=== PATIENT | female | born 1960 | race Caucasian/White ===

== ENCOUNTER 2016-06-19 13:34 | Inpatient (IN) | payer OTHER ==
[~2016-06-19] VITALS: Ht 160 cm; Wt 56.0 kg
[~2016-06-19 13:34] MED LIST: HYDR-3533 PO; MIRT7.5T10 PO; NITR100C4 PO
[2016-06-19] MEDS ORDERED: SODIUM CHLOR 0.9% 1000 ML INJ 1,000 ML IV SCH (13:39)
[2016-06-19] MEDS ORDERED: SODIUM CHLORIDE 0.9% FLUSH 10 ML FLUSH IVF PRN (13:45)
--- NOTE | 2016-06-19 14:14 | RADRPT ---
EXAM DATE/TIME: 06/19/2016 13:45 [facility] COMPARISON: CHOLANGIOGRAM OPERATIVE, June 28, 2015, 13:01. INDICATIONS : Syncope and shortness of breath. MEDICAL HISTORY : None. SURGICAL HISTORY : None. ENCOUNTER: Initial ACUITY: 1 day PAIN SCORE: 0/10 LOCATION: Bilateral upper chest FINDINGS: A single view of the chest demonstrates the lungs to be symmetrically aerated without evidence of mas s, infiltrate or effusion. The cardiomediastinal contours are unremarkable. Osseous structures are intact. CONCLUSION: 1. No acute cardiopulmonary findings. Daryl Swift MD on June 19, 2016 at 14:12 Board Certified Radiologist. This report was verified electronically.
[2016-06-19 14:24] LABS: AUTOMATED NEUTROPHIL # 5.3 TH/MM3 (1.8-7.7); BASOPHIL % 0.3 % (0.0-2.0); EOSINOPHIL % 0.6 % (0.0-4.0); HEMATOCRIT 39.2 % (35.0-46.0); HEMO FLAGS DIFF FINAL; LYMPH % 23.6 % (9.0-44.0); LYMPHOCYTE # 1.9 TH/MM3 (1.0-4.8); MEAN CELL VOLUME 92.2 FL (80.0-100.0); MEAN CORPUSCULAR HEMOGLOBIN 30.7 PG (27.0-34.0); MEAN CORPUSCULAR HGB CONC 33.3 % (32.0-36.0); MONO % 10.8 % (0.0-8.0); NEUT % 64.7 % (16.0-70.0); PLATELET COUNT 141 TH/MM3 (150-450); RED BLOOD COUNT 4.26 MIL/MM3 (4.00-5.30); RED CELL DISTRIBUTION WIDTH 16.9 % (11.6-17.2); WHITE BLOOD COUNT 8.2 TH/MM3 (4.0-11.0)
[2016-06-19 14:35] LABS: APTT (PATIENT) 22.9 SEC (24.3-30.1); PROTHROMBIN TIME - PATIENT 11.2 SEC (9.8-11.6)
--- NOTE | 2016-06-19 14:35 | PD ---
HPI Chief Complaint: altered mental status Time Seen by Provider: 13:38 Travel History International Travel<30 days: No Contact w/Intl Traveler<30days: No (denies) Traveled to known affect area: No (denies) History of Present Illness HPI This Is a 55-year-old female brought in by family members for worsening altered mental status. Reported bleeding, the patient has become more and more confused. Yesterday she was found to have driven her mother's car to [facility] near their house. She was observed going in and out of the store several times looking for her mother. Her mother was at home and it never come with her. The patient is also confused as to where she has. She keeps telling her nephew that she is in [facility]. The patient does know that she is confused however appears to try to downplay this and is not truthful as to exactly as what is going on. The patient keeps saying that she knows that she' s got a memory problem however goes off on 10 gentle thoughts. There is no reported psychiatric history. There is no reported illness. She does have a history in the distant past of heavy alcohol use. Family members state that they have not noted her to be drinking lately. Reportedly she was Alfaro acted by the [facility]'s office and take intact yesterday. According to the nephew, she was medically cleared and discharged this morning. She is still confused and unclear as to where she is. PFSH Past Medical History Arthritis: No Asthma: No Autoimmune Disease: No Blood Disorders: No Anxiety: Yes Depression: Yes Heart Rhythm Problems: Yes Cancer: No Cardiovascular Problems: Yes (per pt hypertension) High Cholesterol: No Chemotherapy: No Chest Pain: Yes Congestive Heart Failure: No COPD: No Cerebrovascular Accident: No Diabetes: No Endocrine: No Genitourinary: No Headaches: No Hypertension: Yes Immune Disorder: No Implanted Vascular Access Dvce: Yes Kidney Stones: No Musculoskeletal: No Neurologic: No Psychiatric: Yes (pt is a poor historian/doesn't remember name) Reproductive: No Respiratory: No Migraines: No Radiation Therapy: No Renal Failure: No Seizures: No Sickle Cell Disease: No Sleep Apnea: No Thyroid Disease: No : 3 Para: 3 Past Surgical History Abdominal Surgery: No AICD: No Arteriovenous Shunt: No Body Medical Devices: grill teeth Cardiac Surgery: No Cholecystectomy: Yes Ear Surgery: No Endocrine Surgery: No Eye Surgery: No Genitourinary Surgery: No Gynecologic Surgery: No Insulin Pump: No Joint Replacement: No Oral Surgery: No Pacemaker: No (PER PT NO IMPLANTED DEVICES NOW) Thoracic Surgery: No Tonsillectomy: Yes Social History Alcohol Use: Yes (DAILY) Tobacco Use: Yes (1PPD, FAMILY STATES MORE) Substance Use: Yes (ALCOHOL) Allergies-Medications (Allergen,Severity, Reaction): Coded Allergies: Penicillin (Verified Allergy, Severe, Rash, 01/30/16) PT STATES NOT ALLERGIC TO PCN. HAS NEVER HAD THE MEDICATION. *MDRO Multi-Drug Resistant Organism (Verified Adverse Reaction, Unknown, 02/03/16) ESBL+E.Coli (urine-01/30/16) Reported Meds & Prescriptions Reported Meds & Active Scripts Active Active Prescriptions or Reported Medications Unobtainable Review of Systems ROS Limitations: Clinical Condition (limited secondary to) Except as stated in HPI: all other systems reviewed are Neg Eyes: No: Blurred Vision, Photophobia HENT: No: Headaches, Neck Pain Cardiovascular: No: Chest Pain or Discomfort, Palpitations Respiratory: No: Cough, Shortness of Breath Gastrointestinal: Positive: Loss of Appetite, No: Nausea, Vomiting, Abdominal Pain Genitourinary: No: Frequency, Dysuria, Incontinence Musculoskeletal: No: Edema, Pain Neurologic: Positive: Change in Mentation, No: Weakness, Dizziness, Syncope, Focal Abnormalities, Headache Psychiatric: Positive: Disorder of Thought, Substance Abuse (in past, denies now), No: Anxiety, Depression Physical Exam Narrative GENERAL: This is a frail-appearing female in no acute respiratory distress. SKIN: Focused skin assessment warm/dry. HEAD: Atraumatic. Normocephalic. EYES: No scleral icterus. No injection or drainage. ENT: Mucous membranes pink and moist. NECK: Trachea midline. No JVD. CARDIOVASCULAR: Regular rate and rhythm. No murmur appreciated. RESPIRATORY: No accessory muscle use. Clear to auscultation. Breath sounds equal bilaterally. GASTROINTESTINAL: Abdomen soft, non-tender, nondistended. MUSCULOSKELETAL: No obvious deformities. No clubbing. No cyanosis. No edema. NEUROLOGICAL: Awake and confused. No obvious cranial nerve defects. The patient had equal strength bilaterally. Normal speech. She was confused to place and date. PSYCHIATRIC: Anxious appearing with tangential thought process. Data Data Last Documented VS Vital Signs Date Time Temp Pulse Resp B/P Pulse Ox O2 Delivery O2 Flow Rate FiO2 06/19/16 15:32 66 21 138/65 98 Room Air Orders Electrocardiogram (06/19/16 13:39) Complete Blood Count With Diff (06/19/16 13:39) Comprehensive Metabolic Panel (06/19/16 13:39) Prothrombin Time / Inr (Pt) (06/19/16 13:39) Act Partial Throm Time (Ptt) (06/19/16 13:39) Thyroid Stimulating Hormone (06/19/16 13:39) Urinalysis - C+S If Indicated (06/19/16 13:39) Chest, Single Ap (06/19/16 13:39) Ct Brain W/O Iv Contrast(Rout) (06/19/16 13:39) Blood Glucose (06/19/16 13:39) Ecg Monitoring (06/19/16 13:39) Iv Access Insert/Monitor (06/19/16 13:39) Oximetry (06/19/16 13:39) Sodium Chloride 0.9% Flush (Ns Flush) (06/19/16 13:45) Sodium Chlor 0.9% 1000 Ml Inj (Ns 1000 M (06/19/16 13:39) Drug Screen, Random Urine (06/19/16 13:39) Admit Order (Ed Use Only) (06/19/16 16:01) Labs Laboratory Tests Test 06/19/16 14:05 White Blood Count 8.2 TH/MM3 Red Blood Count 4.26 MIL/MM3 Hemoglobin 13.1 GM/DL Hematocrit 39.2 % Mean Corpuscular Volume 92.2 FL Mean Corpuscular Hemoglobin 30.7 PG Mean Corpuscular Hemoglobin 33.3 % Concent Red Cell Distribution Width 16.9 % Platelet Count 141 TH/MM3 Mean Platelet Volume 8.7 FL Neutrophils (%) (Auto) 64.7 % Lymphocytes (%) (Auto) 23.6 % Monocytes (%) (Auto) 10.8 % Eosinophils (%) (Auto) 0.6 % Basophils (%) (Auto) 0.3 % Neutrophils # (Auto) 5.3 TH/MM3 Lymphocytes # (Auto) 1.9 TH/MM3 Monocytes # (Auto) 0.9 TH/MM3 Eosinophils # (Auto) 0.0 TH/MM3 Basophils # (Auto) 0.0 TH/MM3 CBC Comment DIFF FINAL Differential Comment Prothrombin Time 11.2 SEC Prothromb Time International 1.0 RATIO Ratio Activated Partial 22.9 SEC Thromboplast Time Sodium Level 137 MEQ/L Potassium Level 4.2 MEQ/L Chloride Level 105 MEQ/L Carbon Dioxide Level 26.5 MEQ/L Anion Gap 6 MEQ/L Blood Urea Nitrogen 15 MG/DL Creatinine 0.59 MG/DL Estimat Glomerular Filtration 105 ML/MIN Rate Random Glucose 89 MG/DL Calcium Level 9.2 MG/DL Total Bilirubin 1.7 MG/DL Aspartate Amino Transf 29 U/L (AST/SGOT) Alanine Aminotransferase 16 U/L (ALT/SGPT) Alkaline Phosphatase 66 U/L Total Protein 7.3 GM/DL Albumin 3.8 GM/DL Thyroid Stimulating Hormone 1.450 uIU/ML 3rd Gen [facility] Medical Decision Making Medical Screen Exam Complete: Yes Emergency Medical Condition: Yes Differential Diagnosis Dementia versus psychosis versus metabolic derangement Narrative Course 85-year-old female brought in by family members for worsening confusion. The patient is not appropriate and has been wandering looking for her mother and taking her father still alive. Father's been for 4 years. The patient is acutely confused on my examination. She is afebrile. She is nontoxic appearing. Other than a elevated bilirubin, her laboratory tests are within normal limits. CT brain shows no evidence of acute findings. Chest x-ray shows no evidence of acute findings. Given the patient's acute confusion, I feel she needs to be admitted. I feel she would benefit from a neurology and psychiatry evaluation. Patient does have a history in the past of heavy alcohol use however is reported not to be a heavy drinker at this time. She has no odor associated with alcohol. She is not tachycardic at this time. Diagnosis Primary Impression: worsening dementia Additional Impressions: history of distant alcohol abuse tobaccoism Admitting Information Admitting Physician Requests: Admit Scripts Unable to Obtain Active Prescriptions or Reported Meds Geoffrey High MD Jun 19, 2016 14:35
[2016-06-19 14:49] LABS: ALKALINE PHOSPHATASE 66 U/L (45-117); TOTAL BILIRUBIN ADULT 1.7 MG/DL (0.2-1.0)
[2016-06-19 15:06] LABS: ALT (GPT) 16 U/L (10-53); ANION GAP 6 MEQ/L (5-15); AST (GOT) 29 U/L (15-37); BICARBONATE 26.5 MEQ/L (21.0-32.0); BLOOD UREA NITROGEN 15 MG/DL (7-18); CHLORIDE 105 MEQ/L (98-107); GLOMERULAR FILTRATION RATE 105 ML/MIN (>89); POTASSIUM 4.2 MEQ/L (3.5-5.1); SODIUM (NA) 137 MEQ/L (136-145)
--- NOTE | 2016-06-19 15:16 | RADRPT ---
EXAM DATE/TIME: 06/19/2016 14:33 [facility] COMPARISON: CT BRAIN W/O CONTRAST, January 30, 2016, 18:48. INDICATIONS : Altered mental status. RADIATION DOSE: 56.35 CTDIvol (mGy) MEDICAL HISTORY : Hypertension. SURGICAL HISTORY : None. ENCOUNTER: Initial ACUITY: 1 day PAIN SCALE: 0/10 LOCATION: cranial TECHNIQUE: Multiple contiguous axial images were obtained of the head. Using automated exposure control and adj ustment of the mA and/or kV according to patient size, radiation dose was kept as low as reasonably a chievable to obtain optimal diagnostic quality images. FINDINGS: CEREBRUM: Stable mild bifrontal atrophy. No evidence of mass or hemorrhage and nothing to suggest acute infarct ion. Ventricles symmetric and normal. POSTERIOR FOSSA: The cerebellum and brainstem are intact. The 4th ventricle is midline. The cerebellopontine angle i s unremarkable. EXTRACRANIAL: The visualized portion of the orbits is intact. SKULL: The calvaria is intact. No evidence of skull fracture. CONCLUSION: Stable brain appearance. Syed Alarcon MD on June 19, 2016 at 15:13 Board Certified Radiologist. This report was verified electronically.
[2016-06-19 15:32] VITALS: BP 138/65; PULSE 66; RESP 21; O2SAT 98
[2016-06-19] MEDS ORDERED: NALOXONE HCL 0.4 MG/ML AMP IV PRN (16:15)
[2016-06-19] MEDS ORDERED: SODIUM CHLORIDE 0.9% FLUSH 10 ML FLUSH IV FLUSH PRN (16:15)
[2016-06-19] MEDS ORDERED: ONDANSETRON HCL 4 MG/2 ML VIAL IVP PRN (16:15)
[2016-06-19] MEDS ORDERED: ACETAMINOPHEN 325 MG TAB PO PRN (16:15)
[2016-06-19 16:30] LABS: BACTERIA, URINE RARE /hpf; BLOOD, URINE NEG (NEG); GLUCOSE,URINE NEG (NEG); KETONE, URINE 10 mg/dL (NEG); SQUAMOUS EPITHELIAL CELL URINE 1 /hpf (0-5); URINE COLOR YELLOW (YELLW/STRAW)
[2016-06-19 16:41] LABS: NITRITE,URINE POS (NEG)
[2016-06-19 16:42] LABS: COMMENT (UR) CATH-CULTURE IND; CULTURE IF INDICATED CATH CULTURE IND
[2016-06-19 16:55] LABS: AMPHETAMINE, URINE NEG (NEG); BARBITURATES, URINE NEG (NEG); COCAINE, URINE NEG (NEG)
--- NOTE | 2016-06-19 18:14 | HHI.HP ---
HPI Service [facility] Hospitalists Primary Care Physician No Primary Care Physician Admission Diagnosis Altered mental status, worsening Diagnoses: Chief Complaint: Increased confusion Anxiety Travel History International Travel<30 Days: No Contact w/Intl Traveler <30 Da: No (denies) Traveled to Known Affected Are: No (denies) History of Present Illness This is a 55-year-old female with a past medical history significant for anxiety , depression, hypertension and history of heavy alcohol use in the past who presents to [facility] ED with complaints of worsening altered mental status as described by her family members. No family members are present at this time therefore the history is obtained from the patient herself as well as review of the medical record. Per the ED note, patient's family reports increased confusion. Yesterday, patient drove her mother's car to [facility] and was observed going in and out of the store several times looking for her mother who was at home and had never left. Patient was disoriented as to where she was. She has also been telling the nephew that she lives in [facility]. Apparently, there is also a history of heavy alcohol use in the past but per the family she has not been drinking lately. History obtained from the patient herself is unreliable. She believes that she had a gallbladder procedure done today or yesterday and that "things were taken off inside". She complains of left-sided upper and mid back pain that she thinks is due to the incision from her gallbladder procedure. She reports that she has recently traveled here from [place]. She also states she lives in [place], [facility] and [place]. She reports memory issues since she was young. She reports intermittent left sided pain just below the breast. She denies any dysuria or abdominal pain but admits to urgency. Lab studies in the ED were significant for elevated totally bilirubin only. CT of the head was obtained which shows stable brain appearance. Chest x-ray was unremarkable. She knows that the year is 2016 but believes the month is March. She knows the name of the facility she is in is [facility] but believes that it's located in [facility]. Review of Systems Except as stated in HPI: all other systems reviewed are Neg (10 point review of systems completed but the patient's responses are unreliable given her current level of confusion) Past Family Social History Past Medical History Hypertension Anxiety Depression Past Surgical History Patient reports that she had a gallbladder procedure done today or yesterday but review of the medical record shows a history of previous cholecystectomy several years ago Reported Medications None in med rec Allergies: Coded Allergies: Penicillin (Verified Allergy, Severe, Rash, 01/30/16) PT STATES NOT ALLERGIC TO PCN. HAS NEVER HAD THE MEDICATION. *MDRO Multi-Drug Resistant Organism (Verified Adverse Reaction, Unknown, 02/03/16) ESBL+E.Coli (urine-01/30/16) Active Ordered Medications Current Medications Medications (Trade) Dose Ordered Sig/Kitty Route Start Time Stop Time Status Last Admin Sodium Chloride 2 ml 2 ml UNSCH PRN IVF 06/19/16 13:45 (NS 1000 ml Inj) 1,000 ml @ 125 mls/hr Q8H IV 06/19/16 13:39 06/19/16 21:38 06/19/16 14:12 (NS Flush) 2 ml UNSCH PRN IV FLUSH 06/19/16 16:15 (NS Flush) 2 ml BID IV FLUSH 06/19/16 21:00 (Tylenol) 650 mg Q4H PRN PO 06/19/16 16:15 (Zofran Inj) 4 mg Q6H PRN IVP 06/19/16 16:15 (Lovenox Inj) 40 mg Q24H SQ 06/19/16 17:00 (Narcan Inj) 0.4 mg UNSCH PRN IV 06/19/16 16:15 Family History Father, hypertension Social History Patient admits to tobacco use of one pack per day. She denies any illicit drug use. She has a reported history of heavy alcohol use in the past. Patient presently states she has 1-2 drinks every couple of days. Physical Exam Vital Signs Vital Signs Date Time Temp Pulse Resp B/P Pulse Ox O2 Delivery O2 Flow Rate FiO2 06/19/16 15:32 66 21 138/65 98 Room Air Physical Exam GENERAL: This is a well-nourished, well-developed patient, in no apparent distress. SKIN: No rashes, ecchymoses or lesions. Cool and dry. HEAD: Atraumatic. Normocephalic. No temporal or scalp tenderness. EYES: Pupils equal round and reactive. Extraocular motions intact. No scleral icterus. No injection or drainage. ENT: Nose without bleeding, purulent drainage or septal hematoma. Throat without erythema, tonsillar hypertrophy or exudate. Uvula midline. Airway patent. NECK: Trachea midline. No lymphadenopathy. Supple, nontender, no meningeal signs. CARDIOVASCULAR: Regular rate and rhythm without murmurs, gallops, or rubs. RESPIRATORY: Clear to auscultation. Breath sounds equal bilaterally. No wheezes , rales, or rhonchi. GASTROINTESTINAL: Abdomen soft, non-tender, nondistended. No hepato-splenomegaly , or palpable masses. No guarding. MUSCULOSKELETAL: Extremities without clubbing, cyanosis, or edema. No joint tenderness, effusion, or edema noted. No calf tenderness. NEUROLOGICAL: Awake and alert. Pressured speech. Patient is able to move all 4 extremities. No focal neurologic findings appreciated. Confused. Oriented to year and self. Laboratory Laboratory Tests Test 06/19/16 06/19/16 14:05 15:40 White Blood Count 8.2 Red Blood Count 4.26 Hemoglobin 13.1 Hematocrit 39.2 Mean Corpuscular Volume 92.2 Mean Corpuscular Hemoglobin 30.7 Mean Corpuscular Hemoglobin 33.3 Concent Red Cell Distribution Width 16.9 Platelet Count 141 Mean Platelet Volume 8.7 Neutrophils (%) (Auto) 64.7 Lymphocytes (%) (Auto) 23.6 Monocytes (%) (Auto) 10.8 Eosinophils (%) (Auto) 0.6 Basophils (%) (Auto) 0.3 Neutrophils # (Auto) 5.3 Lymphocytes # (Auto) 1.9 Monocytes # (Auto) 0.9 Eosinophils # (Auto) 0.0 Basophils # (Auto) 0.0 CBC Comment DIFF FINAL Differential Comment Prothrombin Time 11.2 Prothromb Time International 1.0 Ratio Activated Partial 22.9 Thromboplast Time Sodium Level 137 Potassium Level 4.2 Chloride Level 105 Carbon Dioxide Level 26.5 Anion Gap 6 Blood Urea Nitrogen 15 Creatinine 0.59 Estimat Glomerular Filtration 105 Rate Random Glucose 89 Calcium Level 9.2 Total Bilirubin 1.7 Aspartate Amino Transf 29 (AST/SGOT) Alanine Aminotransferase 16 (ALT/SGPT) Alkaline Phosphatase 66 Total Protein 7.3 Albumin 3.8 Thyroid Stimulating Hormone 1.450 3rd Gen Urine Color YELLOW Urine Turbidity HAZY Urine pH 6.0 Urine Specific [place] 1.020 Urine Protein NEG Urine Glucose (UA) NEG Urine Ketones 10 Urine Occult Blood NEG Urine Nitrite POS Urine Bilirubin NEG Urine Urobilinogen 2.0 Urine Leukocyte Esterase NEG Urine WBC 8 Urine Squamous Epithelial 1 Cells Urine Bacteria RARE Microscopic Urinalysis Comment CATH-CULTURE IND Urine Opiates Screen NEG Urine Barbiturates Screen NEG Urine Amphetamines Screen NEG Urine Benzodiazepines Screen NEG Urine Cocaine Screen NEG Urine Cannabinoids Screen NEG Date/Time Procedure Status Source Growth 06/19/16 15:40 Urine Culture Received Urine Clean Catch Pending Result Diagram: 06/19/16 1405 06/19/16 1405 Assessment and Plan Assessment and Plan 55-year-old female with a past medical history significant for anxiety, depression, hypertension and history of heavy alcohol use in the past who presents to [facility] ED with complaints of worsening altered mental status as described by her family members. 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 - CXR personally interpreted and no evidence of active disease. - Consult Neurology - IVF H/O depression and anxiety now with AMS - Consult Psychiatry - RACHAEL RN, appear very anxious and disorganized, pacing. She was on Risperdal in the past. Restart at a low dose pending further input from psychiatry. HTN - No medications listed in med rec, will request nursing staff to update med rec - BP controlled at present - Monitor BP - clonidine prn with parameters UTI - UA suggestive of UTI - Could be contributing to patients worsening mental status - start po Cipro - f/u on urine culture results H/O ETOH abuse - CIWA protocol - thiamine and folic acid Tobacco use - counseled on smoking cessation DVT prophylaxis - SCD/DONNELL hose Social: Per discussion from ED physician and family. There is increasing difficulty with caring for the patient. She lives with her ailing mother who is unable to care for her. Will consult case management to assist with DC planning. She may benefit from care home placement. I certainly do not think she should be driving. Written by Lucinda Navarro PA-C acting as scribe for Dr. Leung on 06/19/16 at 18:03. All or portions of this note were transcribed by scribe [Lucinda Navarro PA-C] . I, Dr. Michelle Leung personally performed the history, physical exam, and medical decision making; and confirmed the accuracy of the information in the transcribed note. Authenticated by Dr. Michelle Leung on 06/19/16 at 19:21. Physician Certification 2 Midnight Certification Type: Admission for Inpatient Services Order for Inpatient Services The services are ordered in accordance with Medicare regulations or non- Medicare payer requirements, as applicable. In the case of services not specified as inpatient-only, they are appropriately provided as inpatient services in accordance with the 2-midnight benchmark. Estimated LOS (days): 3 days is the estimated time the patient will need to remain in the hospital, assuming treatment plan goals are met and no additional complications. Post-Hospital Plan: Not yet determined Lucinda Navarro Jun 19, 2016 18:14 Michelle Leung MD Jun 19, 2016 19:24
[2016-06-19] MEDS ORDERED: cloNIDine HCL 0.1 MG TAB PO PRN (18:15)
[2016-06-19] MEDS ORDERED: LORazepam 2 MG/ML VIAL IV PUSH PRN ×4 (18:15)
[2016-06-19] MEDS ORDERED: LORazepam 2 MG TAB PO PRN (18:15)
[2016-06-19] MEDS ORDERED: FLUMAZENIL 0.5 MG/5 ML VIAL IV PUSH PRN (18:15)
[2016-06-19] MEDS ORDERED: LORazepam 1 MG TAB PO PRN (18:15)
[2016-06-19 19:10] VITALS: BP 118/60; PULSE 76; RESP 20; O2SAT 99
[2016-06-19] MEDS: ENOXAPARIN SODIUM 40 MG/0.4 ML SYRINGE SQ SCH (19:30)
[2016-06-19 20:00] VITALS: BP 129/65; PULSE 69; RESP 20; TEMP 96.8; O2SAT 100
[2016-06-19] MEDS: SODIUM CHLORIDE 0.9% FLUSH 10 ML FLUSH IV FLUSH SCH (21:00)
[2016-06-19] MEDS: risperiDONE 0.25 MG TAB PO SCH (22:11)
[2016-06-19] MEDS: CIPROFLOXACIN 250 MG TAB PO SCH (22:12)
[2016-06-19] MEDS: THIAMINE HCL 100 MG TAB PO SCH (22:12)
[2016-06-19] MEDS: FOLIC ACID 1 MG TAB PO SCH (22:12)
[2016-06-20 00:05] VITALS: BP 157/70; PULSE 71; RESP 20; TEMP 96.8; O2SAT 97
[2016-06-20 08:00] VITALS: BP 165/74; PULSE 76; RESP 17; TEMP 97.9; O2SAT 97
[2016-06-20] MEDS: THIAMINE HCL 100 MG TAB PO SCH (09:22)
[2016-06-20] MEDS: SODIUM CHLORIDE 0.9% FLUSH 10 ML FLUSH IV FLUSH SCH ×2 (09:22→20:26)
[2016-06-20] MEDS: CIPROFLOXACIN 250 MG TAB PO SCH ×2 (09:22→20:25)
[2016-06-20] MEDS: risperiDONE 0.25 MG TAB PO SCH ×2 (09:22→20:25)
[2016-06-20] MEDS: FOLIC ACID 1 MG TAB PO SCH (09:22)
--- NOTE | 2016-06-20 09:32 | HHI.PR ---
Subjective Remarks Patient is more appropriate today. She still has some mild confusion about her location and events leading up to her hospitalizations. Objective Vitals Vital Signs Date Time Temp Pulse Resp B/P Pulse Ox O2 Delivery O2 Flow Rate FiO2 06/20/16 00:05 96.8 71 20 157/70 97 06/19/16 20:00 96.8 69 20 129/65 100 06/19/16 19:10 76 20 118/60 99 Room Air 06/19/16 15:32 66 21 138/65 98 Room Air I/O 06/19/16 06/19/16 06/19/16 06/20/16 06/20/16 06/20/16 07:00 15:00 23:00 07:00 15:00 23:00 Intake Total 240 ml 1016 ml Balance 240 ml 1016 ml Intake Oral 240 ml 120 ml IV Total 896 ml # Voids 1 2 # Bowel Movements 0 0 Result Diagram: 06/19/16 1405 06/19/16 1405 Imaging Last Impressions Head CT 06/19/16 1339 Signed Impressions: Service Date/Time: Sunday, June 19, 2016 14:33 - CONCLUSION: Stable brain appearance. Syed Alarcon MD Chest X-Ray 06/19/16 1339 Signed Impressions: Service Date/Time: Sunday, June 19, 2016 13:45 - CONCLUSION: 1. No acute cardiopulmonary findings. Daryl Swift MD Objective Remarks GENERAL: This is a well-nourished, well-developed patient, in no apparent distress. CARDIOVASCULAR: Normal rate and regular rhythm without murmurs, gallops, or rubs. RESPIRATORY: Good respiratory efforts. Breath sounds equal and clear to auscultation bilaterally. GASTROINTESTINAL: Abdomen soft, non-tender, non-distended. Normal active bowel sounds MUSCULOSKELETAL: Extremities without cyanosis, or edema. NEURO: Alert & Oriented to person, place and time. At times confused about her current situation. Moves all ext x4 PSYCH: Speech not as pressured compared to yesterday. A/P Assessment and Plan 55-year-old female with a past medical history significant for anxiety, depression, hypertension and history of heavy alcohol use in the past who presents to [facility] ED with complaints of worsening altered mental status as described by her family members. 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 - Per previous discussion with the ER physician and the family, patient never had a neurological workup. Neurology was consulted for assistance. - Encephalopathy appear to be improving. She does have some underlying psych issues as well and seems to be improving on low dose Risperdal. H/O depression and anxiety now with AMS -Appreciate psychiatry consult who recommends continuation of Risperdal. HTN - BP controlled at present without meds - Monitor BP - clonidine prn with parameters UTI - UA suggestive of UTI - Could be contributing to patients worsening mental status -Continue po Cipro - f/u on urine culture results H/O ETOH abuse - CIWA protocol - thiamine and folic acid Tobacco use - counseled on smoking cessation DVT prophylaxis - SCD/DONNELL hortone Discharge Planning Family raised concern the patient may not be able to care for herself. Case management consulted. I attempted to call the family but no one answered the phone. Michelle Leung MD Jun 20, 2016 09:32
[2016-06-20 12:00] VITALS: BP 154/73; PULSE 66; RESP 17; TEMP 98.5; O2SAT 98
--- NOTE | 2016-06-20 13:19 | PD.CONS ---
Provisional Diagnosis Admission Date Jun 19, 2016 at 16:04 [place] I. 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 Patient was seen in February [address] Henry the diagnosis of dementia probably alcohol related. At the present time patient sitting quietly in her room RN present throughout session patient is alert oriented to person place time and situation white female appears stated age. She is calm cooperative with me though she does minimize her alcohol use states she may have a glass of wine daily if she desires it. She also reluctantly acknowledges at times use of hard liquor. She seems to have some insight into the role that alcohol might be playing with her memory issues. She states she is living here now to help care for her mother though she has also lived in [place]. She denies any prior psychiatric contact hospitalization his psychotropic medications that appear she may have been on the Respinol of the past. She is on a low-dose of that medication at this time. Patient denies suicidality homicidality voices or visions. Many event at the present time I would agree with continuation of the low-dose of Respinol. I made strong recommendations to patient to abstain from alcohol perhaps AA meetings are voluntary assessment through [facility] act substance abuse evaluation. As okay by psych for discharge when she is medically clear and stable. Thanks for consult I'll sign off the present time Review of Systems ROS Limitations: Altered Mental Status Constitutional: DENIES: Diaphoretic episodes, Fatigue, Fever, Weight gain, Weight loss, Chills, Dizziness, Change in appetite, Night Sweats Endocrine: DENIES: Abnorml menstrual pattern, Heat/cold intolerance, Polydipsia , Polyuria, Polyphagia Eyes: DENIES: Blurred vision, Diplopia, Eye inflammation, Eye pain, Vision loss , Photosensitivity, Double Vision Ears, nose, mouth, throat: DENIES: Tinnitus, Hearing loss, Vertigo, Nasal discharge, Oral lesions, Throat pain, Hoarseness, Ear Pain, Running Nose, Epistaxis, Sinus Pain, Toothache, Odynophagia Respiratory: DENIES: Apneas, Cough, Snoring, Wheezing, Hemoptysis, Sputum production, Shortness of breath Cardiovascular: DENIES: Chest pain, Palpitations, Syncope, Dyspnea on Exertion , PND, Lower Extremity Edema, Orthopnea, Claudication Gastrointestinal: DENIES: Abdominal pain, Black stools, Bloody stools, Constipation, Diarrhea, Nausea, Vomiting, Difficulty Swallowing, Anorexia Genitourinary: DENIES: Abnormal vaginal bleeding, Dysmenorrhea, Dyspareunia, Sexual dysfunction, Urinary frequency, Urinary incontinence, Urgency, Hematuria , Dysuria, Nocturia, Vaginal discharge Musculoskeletal: DENIES: Joint pain, Muscle aches, Stiffness, Joint Swelling, Back pain, Neck pain Integumentary: DENIES: Abnormal pigmentation, Pruritus, Rash, Nail changes, Breast masses, Breast skin changes, Nipple discharge Hematologic/lymphatic: DENIES: Bruising, Lymphadenopathy Immunologic/allergic: DENIES: Eczema, Urticaria Neurologic: DENIES: Abnormal gait, Headache, Localized weakness, Paresthesias, Seizures, Speech Problems, Tremor, Poor Balance Psychiatric: DENIES: Anxiety, Confusion, Mood changes, Depression, Hallucinations, Agitation, Suicidal Ideation, Homicidal Ideation, Delusions Other Positive urinary tract infection Past Family Social History Coded Allergies: Penicillin (Verified Allergy, Severe, Rash, 01/30/16) PT STATES NOT ALLERGIC TO PCN. HAS NEVER HAD THE MEDICATION. *MDRO Multi-Drug Resistant Organism (Verified Adverse Reaction, Unknown, 02/03/16) ESBL+E.Coli (urine-01/30/16) Discontinued Scripts Nitrofurantoin Monohydrate Macrocrystals 100 Mg [id number] Mg PO BID 7 Days Ref 0 Prov:Kristyn Rico 01/30/16 Current Medications Medications (Trade) Dose Ordered Sig/Kitty Route Start Time Stop Time Status Last Admin (NS Flush) 2 ml UNSCH PRN IV FLUSH 06/19/16 16:15 (NS Flush) 2 ml BID IV FLUSH 06/19/16 21:00 06/20/16 09:22 (Tylenol) 650 mg Q4H PRN PO 06/19/16 16:15 (Zofran Inj) 4 mg Q6H PRN IVP 06/19/16 16:15 (Lovenox Inj) 40 mg Q24H SQ 06/19/16 17:00 06/19/16 19:30 (Narcan Inj) 0.4 mg UNSCH PRN IV 06/19/16 16:15 (Cipro) 250 mg Q12HR PO 06/19/16 21:00 06/22/16 20:59 06/20/16 09:22 (Romazicon Inj) 0.2 mg Q1M PRN IV PUSH 06/19/16 18:15 (Ativan) 1 mg Q4H PRN PO 06/19/16 18:15 (Ativan Inj) 1 mg Q4H PRN IV PUSH 06/19/16 18:15 (Ativan) 2 mg Q2H PRN PO 06/19/16 18:15 (Ativan Inj) 2 mg Q2H PRN IV PUSH 06/19/16 18:15 (Ativan Inj) 2 mg Q1H PRN IV PUSH 06/19/16 18:15 (Ativan Inj) 2 mg Q15M PRN IV PUSH 06/19/16 18:15 (Vitamin B1) 100 mg DAILY PO 06/19/16 18:15 06/20/16 09:22 (Folate) 1 mg DAILY PO 06/19/16 18:15 06/20/16 09:22 (Catapres) 0.1 mg Q6H PRN PO 06/19/16 18:15 (risperDAL) 0.25 mg BID PO 06/19/16 21:00 06/20/16 09:22 Physical Exam Please see med [facility] assessments Vital Signs Vital Signs Date Time Temp Pulse Resp B/P Pulse Ox O2 Delivery O2 Flow Rate FiO2 06/20/16 08:00 97.9 76 17 165/74 97 06/19/16 19:10 Room Air I/O 06/19/16 06/19/16 06/20/16 08:00 16:00 00:00 Intake Total 240 ml Balance 240 ml Mental Status Examination Alert oriented thin slender white female appears stated age seen quietly on her bed. RN present throughout session patient calm cooperative oriented 4 Appearance Clean and neat Speech: Unremarkable, Fast (slight increased rate) Orientation: x3 Memory: Unremarkable Thought Process: Logical, Linear Thought Content: Unremarkable Language Prydeinig Fund of Knowledge Poor to fair Hallucination Type: None Attention and Concentration: Other (there) Suicidal Ideation: No Previous Suicide Attempts: No Homicidal Ideation: No Previous Homicide Attempts: No Insight: Poor Judgment: Poor Affect: Other (good range and intensity) Mood: Euthymic Motor Activity: Normal gait Assessment & Plan Problem List: (1) Alcohol use disorder ICD Code: F10.99 (2) Dementia associated with other underlying disease with behavioral disturbance ICD Code: F02.81 (3) Delirium due to another medical condition ICD Code: F05 Assessment & Plan Estimated LOS: days would agree with continuation of low-dose Respinol, with follow-up with her PCP. If this time it is okay by psych for discharge when medically clear and stable patient consult I will sign off the present time Discharge Planning See above Request HC Surrog/Guard Advoc?: No Syed Kan MD Jun 20, 2016 13:19
--- NOTE | 2016-06-20 14:41 | EKG ---
Date Performed: 06/19/2016 Time Performed: 15:51:40 PTAGE: 55 years EKG: Sinus rhythm Compared to prior tracing no significant change NORMAL ECG PREVIOUS TRACING : 06/27/2015 21.45 DOCTOR: Andres Paulino Interpretating Date/Time 06/20/2016 14:38:48
[2016-06-20 16:00] VITALS: BP 144/70; PULSE 69; RESP 17; TEMP 96.5; O2SAT 99
[2016-06-20] MEDS: ENOXAPARIN SODIUM 40 MG/0.4 ML SYRINGE SQ SCH (17:00)
--- NOTE | 2016-06-20 19:13 | RADRPT ---
EXAM DATE/TIME: 06/20/2016 18:51 [place] COMPARISON: CT BRAIN W/O CONTRAST, June 19, 2016, 14:33. INDICATIONS : Confusion. MEDICAL HISTORY : Hypertension. SURGICAL HISTORY : Cholecystectomy. ENCOUNTER: Initial ACUITY: 1 day PAIN SCORE: 0/10 LOCATION: cranial TECHNIQUE: Multiplanar, multisequence MRI of the brain was performed without contrast. FINDINGS: CEREBRUM: The ventricles are normal for age. There is bilateral cortical atrophy overlying both frontal lobes. No evidence of midline shift, mass lesion, hemorrhage or acute infarction. No extraaxial fluid delicia ections are seen. The pituitary gland and suprasellar cistern are normal in configuration. WHITE MATTER: No significant signal abnormalities are seen in the white matter. A few tiny high signal spots are se en in the white matter tracts suggestive of ischemic demyelinization. POSTERIOR FOSSA: The cerebellum and brainstem are intact. The 4th ventricle is midline. The cerebellopontine angle is unremarkable. The cerebellar tonsils are normal in position. DIFFUSION IMAGING: No focal areas of restricted diffusion are seen. No evidence of acute infarction. EXTRACRANIAL: The visualized portions of the orbits and paranasal sinuses are unremarkable. CONCLUSION: 1. There is bilateral cortical atrophy overlying both frontal lobes. 2. No acute intracranial pathology is demonstrated. Alex Luis MD on June 20, 2016 at 19:10 Board Certified Radiologist. This report was verified electronically.
[2016-06-20 20:00] VITALS: BP 147/73; PULSE 64; RESP 18; TEMP 97.4; O2SAT 99
--- NOTE | 2016-06-20 21:37 | MB ---
cc: JOSE CRUZ MENDOZA MD DATE OF CONSULTATION 06/20/16 1959 REASON FOR CONSULTATION Mental status change. HISTORY OF PRESENT ILLNESS A 55-year-old woman with a history of anxiety, depression, hypertension, chronic ethanol abuse, comes in with worsening change in mental status described by family. No family here to give me any history. History is taken solely from the chart. Apparently, increased confusion. She drove her mother's car to [employer], observed going in and out of the store several times looking for her mother, disoriented. She believes today that she came in because she had some procedure done. She is telling me some blood work, but really cannot tell me more than that. She states she lives alone with a dog but her mother is next door, lives with her at times. She seems pleasant but not really willing to participate completely with exam. ALLERGIES PENICILLIN MDRO PAST MEDICAL HISTORY 1. History of anxiety, depression, 2. Hypertension FAMILY HISTORY Hypertension. SOCIAL HISTORY Smokes a pack a day, reported history of heavy alcohol use in the past PHYSICAL EXAMINATION VITAL SIGNS: Temperature 98.5, pulse 66, respiratory rate 17, blood pressure 154/73, satting at 98% room air. NECK: Supple. HEART: Regular. NEUROLOGIC: She is awake and alert. She thinks it is June 17, 2016. she knows it is Wednesday. speech is fluent. Pupils reactive. No nystagmus. Motor lozano - no drift. No leg lag. No tremor. Toes are both downgoing. LABORATORY DATA CBC - platelets 141,000. Coag panel PTT was 22.9. Chemistries - total bilirubin 1.7, TSH normal. Urine - culture is pending for nitrates, 10 ketones. 8 White cells. Toxicology was negative. Urine is growing gram-negative rods. She is on Cipro. IMAGING STUDIES CT head stable, nothing acute. IMPRESSION A 55-year-old woman who presents with change in mental status, may be due to a chronic alcohol use, difficult to tell. CT was unremarkable. Her encephalopathy seems to be improving now that she is on a low dose Risperdal. I am wondering if this is more psychiatric illness, but I would recommend getting a B12, RPR, an MRI of the brain and EEG at some point whether this needs to be done inpatient or outpatient. Depends if the patient wants to go home certainly some of it can be done, but I am not sure how reliable she is. I would start her on some vitamins with thiamine and watch her for any alcohol withdrawal. I will go ahead and order the B12, RPR and the other tests. Hopefully, if stable can be discharged in the next 24-48 hours. MD RADHA Martel/ /4:35 PM /9:24 PM
[2016-06-21] VITALS: BP 159/78; PULSE 58; RESP 18; TEMP 97.4; O2SAT 98
[2016-06-21 08:00] VITALS: BP 159/85; PULSE 62; RESP 17; TEMP 96.6; O2SAT 97
[2016-06-21] MEDS: CIPROFLOXACIN 250 MG TAB PO SCH (08:41)
[2016-06-21] MEDS: FOLIC ACID 1 MG TAB PO SCH (08:41)
[2016-06-21] MEDS: risperiDONE 0.25 MG TAB PO SCH ×2 (08:41→19:49)
[2016-06-21] MEDS: THIAMINE HCL 100 MG TAB PO SCH (08:41)
[2016-06-21] MEDS: SODIUM CHLORIDE 0.9% FLUSH 10 ML FLUSH IV FLUSH SCH ×2 (09:00→19:49)
--- NOTE | 2016-06-21 11:25 | HHI.PR ---
Subjective Remarks Patient still having intermittent episodes of confusion. I discussed with her daughter at length today. Concern about her ability to leave by herself. Patient states she wants to return home and will probably go live with her mother until she is better. She adamantly refused to consider living in an NURSING HOME. Objective Vitals Vital Signs Date Time Temp Pulse Resp B/P Pulse Ox O2 Delivery O2 Flow Rate FiO2 06/21/16 08:00 96.6 62 17 159/85 97 06/21/16 00:00 97.4 58 18 159/78 98 06/20/16 20:00 97.4 64 18 147/73 99 06/20/16 16:00 96.5 69 17 144/70 99 06/20/16 12:00 98.5 66 17 154/73 98 I/O 06/20/16 06/20/16 06/20/16 06/21/16 06/21/16 06/21/16 07:00 15:00 23:00 07:00 15:00 23:00 Intake Total 1016 ml 2152 ml 120 ml 120 ml Output Total 4 ml Balance 1016 ml 2148 ml 120 ml 120 ml Intake Oral 120 ml 1080 ml 120 ml 120 ml IV Total 896 ml 1072 ml Output Urine Total 4 ml # Voids 2 3 1 2 # Bowel Movements 0 0 0 0 Result Diagram: 06/19/16 1405 06/19/16 1405 Objective Remarks GENERAL: This is a well-nourished, well-developed patient, in no apparent distress. CARDIOVASCULAR: Normal rate and regular rhythm without murmurs, gallops, or rubs. RESPIRATORY: Good respiratory efforts. Breath sounds equal and clear to auscultation bilaterally. GASTROINTESTINAL: Abdomen soft, non-tender, non-distended. Normal active bowel sounds MUSCULOSKELETAL: Extremities without cyanosis, or edema. NEURO: Alert & Oriented to person, place and time. At times confused about her current situation all events leading up to her hospitalization. Moves all ext x4 PSYCH: Speech is normal A/P Assessment and Plan 55-year-old female with a past medical history significant for anxiety, depression, hypertension and history of heavy alcohol use in the past who presents to [facility] ED with complaints of worsening altered mental status as described by her family members. Acute on chronic encephalopathy/AMS in patient with history of probable alcohol related dementia: Much improved. - Appreciate neurology following. Brain MRI revealed bilateral cortical atrophy. Thiamine and B6 levels pending - She does have some underlying psych issues as well and seems to be improving on low dose Risperdal. H/O depression and anxiety now with AMS -Appreciate psychiatry consult who recommends continuation of Risperdal. HTN - BP controlled at present without meds - Monitor BP - clonidine prn with parameters UTI: Urine growing Citrobacter that is resistant to Cipro. Will switch antibiotics to Bactrim. H/O ETOH abuse - [facility] protocol - thiamine and folic acid Tobacco use - counseled on smoking cessation DVT prophylaxis - SCD/DONNELL hortone Discharge Planning I discussed with the patient's daughter today. Plan to discharge tomorrow. Patient may be better off at an NURSING HOME. However she is refusing at this time. Next best option is for discharge home where she can go back to living with her mother. She is agreeable to that. Michelle Leung MD Jun 21, 2016 11:25
[2016-06-21 12:00] VITALS: BP 143/75; PULSE 73; RESP 16; TEMP 97.5; O2SAT 96
[2016-06-21] MEDS: SULFAMETHOXAZOLE-TRIMETHOPRIM DS 800-160 MG TAB PO SCH ×2 (14:47→19:49)
[2016-06-21 16:00] VITALS: BP 137/62; PULSE 67; RESP 16; TEMP 97.3; O2SAT 95
[2016-06-21] MEDS: ENOXAPARIN SODIUM 40 MG/0.4 ML SYRINGE SQ SCH (16:43)
[2016-06-21 20:00] VITALS: BP 122/58; PULSE 60; RESP 20; TEMP 96; O2SAT 98
[2016-06-22] VITALS: BP 132/78; PULSE 61; RESP 20; TEMP 96.3; O2SAT 98
--- NOTE | 2016-06-22 07:49 | MG ---
cc: CINDY CLEMONS Lab No: [id number] Date: 06/22/2016 Age: 55 Sex: F Photic stimulation. Awake and drowsy EEG. MRI shows atrophy over the frontal lobes, nothing acute. This is a 55-year-old woman with change in mental status, confusion. History of anxiety, depression, chronic alcohol abuse, tobacco abuse, some dementia features. Medicines are folate, Cipro, Risperdal, vitamin-B1. DESCRIPTION OF RECORD The patient has overall background of 8.5 to 9 Hz, 20-60 microvolts. There is some muscle artifact. EKG does look sinus. Overall symmetrical background, well-organized. Photic stimulation does elicit a driving response but quite a bit of artifact during that portion. No epileptiform features are seen. IMPRESSION Normal-appearing EEG without any epileptiform features. MD RADHA Martel/LAUREN /7:34 AM /7:45 AM
[2016-06-22] MEDS: risperiDONE 0.25 MG TAB PO SCH (07:58)
[2016-06-22] MEDS: SULFAMETHOXAZOLE-TRIMETHOPRIM DS 800-160 MG TAB PO SCH (07:58)
[2016-06-22] MEDS: THIAMINE HCL 100 MG TAB PO SCH (07:58)
[2016-06-22] MEDS: FOLIC ACID 1 MG TAB PO SCH (07:59)
[2016-06-22 08:00] VITALS: BP 145/77; PULSE 66; RESP 17; TEMP 97.4; O2SAT 99
[2016-06-22] MEDS: SODIUM CHLORIDE 0.9% FLUSH 10 ML FLUSH IV FLUSH SCH (08:00)
[2016-06-22] MEDS ORDERED: FOLI1TAB4 PO (09:54)
[2016-06-22] MEDS ORDERED: VITA100T2 PO (09:54)
[2016-06-22] MEDS ORDERED: RISP.25 PO (09:54)
[2016-06-22] MEDS ORDERED: BACT800T5 PO (09:54)
--- NOTE | 2016-06-22 09:54 | HHI.DCPOC ---
Discharge Care Plan Diagnosis: (1) Dementia associated with alcoholism (2) Urinary tract infection Goals to Promote Your Health * To prevent worsening of your condition and complications * To maintain your health at the optimal level Directions to Meet Your Goals Take your medications as prescribed Follow your dietary instruction Follow activity as directed Keep your appointments as scheduled Take your immunizations and boosters as scheduled If your symptoms worsen call your PCP, if no PCP go to Urgent Care Center or Emergency Room Smoking is Dangerous to Your Health. Avoid second hand smoke Call the 24-hour hour crisis hotline for domestic abuse at Michelle Leung MD Jun 22, 2016 09:54
--- NOTE | 2016-06-22 09:55 | HHI.DS ---
Discharge Summary Admission Date Jun 19, 2016 at 16:04 Discharge Date: Jun 22, 2016 Admitting Diagnosis Altered mental status, worsening (1) Dementia associated with alcoholism ICD Code: F10.27 (2) Urinary tract infection ICD Code: N39.0 Procedures None Brief History - From Admission This is a 55-year-old female with a past medical history significant for anxiety , depression, hypertension and history of heavy alcohol use in the past who presents to [facility] ED with complaints of worsening altered mental status as described by her family members. No family members are present at this time therefore the history is obtained from the patient herself as well as review of the medical record. Per the ED note, patient's family reports increased confusion. Yesterday, patient drove her mother's car to [facility] and was observed going in and out of the store several times looking for her mother who was at home and had never left. Patient was disoriented as to where she was. She has also been telling the nephew that she lives in [facility]. Apparently, there is also a history of heavy alcohol use in the past but per the family she has not been drinking lately. History obtained from the patient herself is unreliable. She believes that she had a gallbladder procedure done today or yesterday and that "things were taken off inside". She complains of left-sided upper and mid back pain that she thinks is due to the incision from her gallbladder procedure. She reports that she has recently traveled here from [place]. She also states she lives in [place], [facility] and [place]. She reports memory issues since she was young. She reports intermittent left sided pain just below the breast. She denies any dysuria or abdominal pain but admits to urgency. Lab studies in the ED were significant for elevated totally bilirubin only. CT of the head was obtained which shows stable brain appearance. Chest x-ray was unremarkable. She knows that the year is 2016 but believes the month is March. She knows the name of the facility she is in is [facility] but believes that it's located in [facility]. CBC/BMP: 06/19/16 1405 06/19/16 1405 Significant Findings Laboratory Tests Test 06/19/16 06/19/16 14:05 15:40 Activated Partial 22.9 SEC Thromboplast Time (24.3-30.1) Total Bilirubin 1.7 MG/DL (0.2-1.0) Platelet Count 141 TH/MM3 (150-450) Monocytes (%) (Auto) 10.8 % (0.0-8.0) Urine Turbidity HAZY (CLEAR) Urine Ketones 10 mg/dL (NEG) Urine Nitrite POS (NEG) Urine WBC 8 /hpf (0-5) Urine Bacteria RARE /hpf (NONE) Imaging Last Impressions Brain MRI 06/20/16 0000 Signed Impressions: Service Date/Time: Monday, June 20, 2016 18:51 - CONCLUSION: 1. There is bilateral cortical atrophy overlying both frontal lobes. 2. No acute intracranial pathology is demonstrated. Alex Luis MD Head CT 06/19/16 1339 Signed Impressions: Service Date/Time: Sunday, June 19, 2016 14:33 - CONCLUSION: Stable brain appearance. Syed Alarcon MD Chest X-Ray 06/19/169 Signed Impressions: Service Date/Time: Sunday, June 19, 2016 13:45 - CONCLUSION: 1. No acute cardiopulmonary findings. Daryl Swift MD PE at Discharge GENERAL: This is a well-nourished, well-developed patient, in no apparent distress. CARDIOVASCULAR: Normal rate and regular rhythm without murmurs, gallops, or rubs. RESPIRATORY: Good respiratory efforts. Breath sounds equal and clear to auscultation bilaterally. GASTROINTESTINAL: Abdomen soft, non-tender, non-distended. Normal active bowel sounds MUSCULOSKELETAL: Extremities without cyanosis, or edema. NEURO: Alert & Oriented to person, place and time. At times confused about her current situation all events leading up to her hospitalization. Moves all ext x4 PSYCH: Speech is normal Pt update on day of discharge Hortencia reprots she is feeling well. She is anxious to go home. States she understand her limitations and will be living with her mother. Hospital Course 55-year-old female with a past medical history significant for anxiety, depression, hypertension and history of heavy alcohol use in the past who presents to [facility] ED with complaints of worsening altered mental status as described by her family members. Evaluation and treatment course detailed below: Acute on chronic encephalopathy/AMS in patient with history of probable alcohol related dementia: Much improved. - Neurology followed the patient. Brain MRI revealed bilateral cortical atrophy. - She does have some underlying psych issues as well and seems to overall improve on low dose Risperdal. H/O depression and anxiety now with AMS -Appreciate psychiatry consult who recommends continuation of Risperdal. HTN - BP controlled without meds. Advised low salt diet and follow up with PCP UTI: Urine growing Citrobacter that is resistant to Cipro. Patient was switched to Bactrim. H/O ETOH abuse: Patient was counseled extensively to avoid alcohol use. - [facility] protocol - thiamine and folic acid while in the hospital. Tobacco use - counseled on smoking cessation I discussed with the patient's daughter. SHe has some dementia and memory issues. SHe would be better off in an [facility]AY but patient not agreeable and chose to go back living with her mother instead. Pt Condition on Discharge: Stable Discharge Disposition: Disch w/ Home Health Serv Discharge Time: > 30 minutes Discharge Instructions DIET: Follow Instructions for: Heart Healthy Diet Activities you can perform: Regular-No Restrictions Other Activity Instructions: Do not drive New Medications: Folic Acid (Folate) 1 Mg Tab 1 MG PO DAILY #30 TAB Risperidone (Risperdal) 0.25 Mg Tab 0.25 MG PO BID #60 TAB Sulfamethoxazole-Trimethoprim (Bactrim DS) 800-160 Mg Tab 1 TAB PO Q12HR #14 TAB Thiamine (Vitamin B-1) 100 Mg Tab 100 MG PO DAILY #30 TAB Michelle Leung MD Jun 22, 2016 09:55
--- NOTE | 2016-06-22 09:56 | HHI.FF ---
Face to Face Verification Diagnosis: (1) Dementia associated with alcoholism (2) Urinary tract infection Home Health Nursing Order: Medical education Signs/symptoms of disease process Medication education-adverse effect [employer] Order: To Evaluate: Living conditions/environment, Support services Order: To Provide: Long range planning I have seen patient Raymond Steve on 06/22/16. My clinical findings support the need for the requested home health care services because: Med compliance is questionable Impaired cognition/judgement I certify that my clinical findings support that this patient is homebound because: Need for psychosocial assistance Michelle Leung MD Jun 22, 2016 09:56
[2016-06-22 12:00] VITALS: BP 124/76; PULSE 70; RESP 18; TEMP 98.1; O2SAT 100
[2016-06-26 09:52] LABS: VITAMIN B6 LESS THAN 2.0 ng/mL (2.1-21.7)
== END 2016-06-22 15:35 | disposition home or self-care (01) | DRG 896 ==
LOC: NEPE 13:34 → NEDA 16:04 → N07A 19:46
PROVIDERS: ADMIT Family Medicine; ATTEND Family Medicine
DX: F10.27 Alcohol dependence with alcohol-induced persisting dementia (principal); G93.40 Encephalopathy, unspecified; F05 Delirium due to known physiological condition; N39.0 Urinary tract infection, site not specified; F02.80 Dementia in other diseases classified elsewhere, unspecified severity, without behavioral disturbance, psychotic disturbance, mood disturbance, and anxiety; I10 Essential (primary) hypertension; F17.210 Nicotine dependence, cigarettes, uncomplicated; F41.9 Anxiety disorder, unspecified; Z16.23 Resistance to quinolones and fluoroquinolones
CPT/HCPCS: 70450; 70551; 71010; 80053; 80307; 81001; 82607; 84207; 84425; 84443; 85025; 85610; 85730; 86592; 87077; 87086; 87186; 93005; 95819; 96360; 96361; J1650; J7030